=== PATIENT | male | born 1965 | race Caucasian/White ===

== ENCOUNTER → 2018-05-07 | Day surgery (SDC) | payer BC, MEDICARE ==
[~2018-05-07] MED LIST: AMLODIPINE BESY10 MG PO; BELBUCA PO; BYSTOLIC10 MG PO; DEXAMETHASONE SOD PHOS INJ 4 MG/ML VIAL ONE; FENTANYL CITRATE/PF 100MCG/2 ML INJ ONE; GLYCOPYRROLATE INJ 1MG/ 5 ML SYR ONE; HYDROCHLOROTHIA25 MG PO; IOPAMIDOL 610MG/1ML 300 MG/ML VIAL IV ONE; KETOROLAC TROMETHAMINE 30 MG/ML VIAL ONE; LEVOFLOXACIN 500MG/D5W 100ML 100 ML IV ONE; LIDOCAINE HCL 2% LOCAL INJ 5 ML SDV VIAL INJ ONE; MEGA MULTI FOR1 EAC1 PO; MIDAZOLAM HCL 2 MG/2 ML VIAL ONE; OMEGA 3-6-9 CO400 MG PO; ONDANSETRON HCL INJ 2 MG/ML VIAL ONE; PROPOFOL IV EMULSION 10 MG/ML 20 ML VIAL ONE; SEVOFLURANE INHAL SOLN 250 ML PEN BTL ONE; TURMERIC PO; TURMERIC1 GM
--- OUTSIDE RECORDS SUMMARY | 2018-05-07 09:43 | XMS REPORT | Clinical Summary ---
Author Author [facility] Organization [facility] Address Unknown Phone Unavailable Care Team Providers Care Revenue Collector Name Role Phone Asked, No Pcp PCP Unavailable Allergies Not on File Medications Not on file Active Problems Not on file Encounters Care Team Description Date Type Specialty Auguste, Larry Chest pain, unspecified type (Primary Dx) 05/01/2018 Orders Only Procedural Cardiology Supa Saenz MD Calculus of kidney 03/06/2018 Hospital Radiology Encounter after 05/06/2017 Social History Date Tobacco Use Types Packs/Day Years Used Never Smoker Tobacco Cessation: Counseling Given: No Alcohol Use Drinks/Week oz/Week Comments No Sex Assigned at Date Recorded Not on file Industry Job Start Date Occupation Not on file Not on file Not on file Travel End Travel History Travel Start No recent travel history available. Last Filed Vital Signs Not on file Plan of Treatment Health Maintenance Due Date Last Done Comments COLON CANCER SCREENING 2017 SHINGRIX VACCINE (1 of 2) 2017 INFLUENZA VACCINE 01/01/2018 HEPATITIS B VACCINES Aged Out No longer eligible based on patient's age to complete this topic IPV VACCINES Aged Out No longer eligible based on patient's age to complete this topic MENINGOCOCCAL VACCINE Aged Out No longer eligible based on patient's age to complete this topic Procedures Comments Procedure Name Priority Date/Time Associated Diagnosis ECG 12-LEAD Routine 04/30/2018 Chest pain, unspecified 5:19 PM [facility] type XR ABDOMEN 1 VW Routine 03/06/2018 Calculus of kidney 3:51 PM CDT after 05/06/2017 Results * ECG 12 lead (04/30/2018 5:19 PM [facility]) Ventricular rate 45 [facility] Atrial rate 45 [facility] [place] interval 156 [facility] QRSD interval 104 [facility] QT interval 478 [facility] M[facility] QTC interval 413 [facility] P axis 1 31 [facility] MUSE QRS axis 1 13 [facility] MUSE T wave axis 16 [facility] MUSE EKG impression Sinus bradycardia-Nonspecific [facility] MUSE ST abnormality-No previous ECGs available- Narrative Performed At Performing Organization Address [facility] Phone Number [facility] MUSE [address] [place] [address] * XR Abdomen 1 Vw (03/06/2018 3:51 PM CDT) Narrative Performed At Study:XR ABDOMEN 1 VW [facility] History:N20.0 Calculus of kidney COMPARISON:None. IMPRESSION: 3 views of the abdomen. No kidney stones detected by x-ray. No bowel distention or free air. No unusual calcifications. Small amount of stool present within the colon. Bones are without acute abnormalities. [facility]-[id number] Procedure Note Hm Interface, Radiology Results Incoming - 03/06/2018 5:33 PM CDT Study:XR ABDOMEN 1 VW History:N20.0 Calculus of kidney COMPARISON:None. IMPRESSION: 3 views of the abdomen. No kidney stones detected by x-ray. No bowel distention or free air. No unusual calcifications. Small amount of stool present within the colon. Bones are without acute abnormalities. [facility]-[id number] Performing Organization Address [facility] Phone Number [facility] [address] [place] [address] after 05/06/2017 Insurance Payer Benefit Subscriber ID Type Phone Address Plan / Group BCBS BCBS xxxxxxxxxxxxxxx PPO CHOICE PPO/[employer] PPO Advance Directives Patient has advance care planning documents on file. For more information, pleas e contact: Brant Lopez [address] [place] [address]
--- NOTE | 2018-05-07 14:03 | Operative Report ---
DATE OF PROCEDURE: May 07, 2018 PREOPERATIVE DIAGNOSES 1. Recurrent prostatitis. 2. Chronic prostatitis. POSTOPERATIVE DIAGNOSES 1. Recurrent prostatitis. 2. Chronic prostatitis. OPERATION PERFORMED: Cystourethroscopy and bilateral retrograde pyelograms. CARD PROCESSING CLERK: Dr. Moody ANESTHETIC: General. Mr. Webb is a 53-year-old male who presented with a history of recurrent prostatitis. He has been on several antibiotics in the past. He presents at this time for cystourethroscopy. This patient was placed on the table in the lithotomy position and was prepped and draped in a sterile manner after satisfactory anesthesia. A #23-Filipino Wappler panendoscope was used, and cystourethroscopy was performed. It was noted that the urethra was normal. The prostatic urethra was about 3 cm long, bilobar and occlusive but very congested and bleeding to touch. Cystoscopy was then performed using both right angle and foroblique lens, and it was noted that the bladder mucosa was normal with no evidence of gross tumor, pathology, or any papillary lesions. The bladder wall was normal. Right retrograde pyelogram was then performed using a #8 ball-tipped urethral catheter inserted at the right ureteral orifice, and 5 mL of contrast material was injected. Retrograde performed was normal. Left retrograde pyelogram was performed similarly and was normal. The bladder was drained. The cystoscope was removed. The patient was taken to the recovery room in satisfactory condition. Plan for this patient is to be placed on Cipro 500 mg 1 twice a day for 3 weeks. Ultracet tablet 1 every 6 hours p.r.n. and was given 15. He is to return to the office in 3 weeks. Job#: [id number]
[2018-05-07 14:15] VITALS: BP 129/71
== END | disposition home or self-care (01) ==
LOC: OR 09:41
PROVIDERS: ATTEND Specialist
DX: N40.0 Benign prostatic hyperplasia without lower urinary tract symptoms (principal); I10 Essential (primary) hypertension; G89.29 Other chronic pain
CPT/HCPCS: 52005; 74420; C1758; J1100; J1885; J1956; J2001; J2250; J2405; J2704; J3490; Q9967